=== PATIENT | female | born 1995 | race Hispanic/Latino ===

== ENCOUNTER 2022-03-13 10:42 | Day surgery (SDC) | payer OTHER ==
[~2022-03-13 10:42] MED LIST: ceFAZolin/Water 2 GM/20 ML 2 GM/20 ML SYRINGE IV NR; metroNIDAZOLE/NS 500 MG/100 ML 500 MG/100 ML BAG IV NR
[2022-03-13] MEDS ORDERED: LACTATED RINGERS 1,000 ML ONE ×2 (10:57→13:37)
[2022-03-13] MEDS ORDERED: ONDANSETRON 4 MG/2 ML INJ IV PRN (11:51)
[2022-03-13] MEDS ORDERED: HYDROmorphone 0.5 MG/0.5 ML INJ IV PRN ×2 (11:51)
[2022-03-13] MEDS ORDERED: ACETAMINOPHEN 325 MG TAB PO ONE (11:51)
--- NOTE | 2022-03-13 11:53 | Anesthesia Day of Surgery ---
Anesthesia Day of Surgery - Day of Surgery Patient Examined: Yes Patient H&P Reviewed: Yes Patient is NPO: Yes
--- NOTE | 2022-03-13 11:55 | Anesthesia Consultation ---
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
[2022-03-13] MEDS ORDERED: LACTATED RINGERS 1,000 ML IV SCH (12:00)
[2022-03-13] MEDS ORDERED: CELECOXIB 200 MG CAP PO SCH (12:00)
[2022-03-13] MEDS ORDERED: MIDAZOLAM 2 MG/2 ML INJ IV SCH (12:00)
[2022-03-13] MEDS ORDERED: HYDROmorphone 1 MG/1 ML INJ ONE (12:14)
[2022-03-13] MEDS ORDERED: propofoL 200 MG/20 ML VIAL IV ONE (12:15)
[2022-03-13] MEDS ORDERED: LIDOCAINE MPF (2%) 20 MG/1 ML VIAL 5 ML ONE (12:16)
[2022-03-13] MEDS ORDERED: dexAMETHasone 20 MG/5 ML VIAL ONE (12:41)
[2022-03-13] MEDS ORDERED: LIDOCAINE 2%/EPINEPHRINE 1:100,000 VIAL (20 ML) INFILTRATI ONE ×2 (12:50→13:25)
[2022-03-13] MEDS ORDERED: BUPIVACAINE/PF (0.5%) 5 MG/1 ML 30 ML VIAL INFILTRATI ONE ×2 (12:50→13:25)
[2022-03-13] MEDS ORDERED: KETOROLAC 30 MG/1 ML INJ ONE (13:29)
[2022-03-13] MEDS ORDERED: ONDANSETRON 4 MG/2 ML INJ ONE (13:29)
--- NOTE | 2022-03-13 14:16 | Short Stay Summary ---
Short Stay Documentation Date of service: 03/13/22 - History Principal diagnosis: Internal hemorrhoids with Prolapse and anterior fissure H&P: obtained from office - Allergies and Medications Current Medications: Allergies tramadol Allergy (Verified 02/25/22 15:02) Dizziness NAUSEA AND VOMITING TYLENOL-CODEINE #4 Allergy (Uncoded 02/25/22 15:02) Nausea VOMITING, DIZZINESS Home Medications Medication Instructions Recorded Confirmed Last Taken Type Aspirin/Acetaminophen/Caffeine 1 each PO PRN PRN 02/25/22 02/25/22 Unknown History [Pain Relievr [id number] Cplt] Bacillus Coagulan/Calcium Carb 1 each PO DAILY 02/25/22 02/25/22 Unknown History [Digest Adv Probio 2 B Cell Cap] Collagen/Biotin/Ascorbic Acid 1 each PO DAILY 02/25/22 02/25/22 Unknown History [Collagen 1500 Plus C Capsule] Ergocalciferol(Vitamin D2)(Nf) 400 unit PO DAILY 02/25/22 02/25/22 Unknown History [Vitamin D (Nf)] Green Tea Deridder Extract [Green Tea 315 mg PO DAILY 02/25/22 02/25/22 Unknown History Extract] Norethindrone-E.estradiol-Iron [Lo 1 each PO DAILY 02/25/22 02/25/22 Unknown History Loestrin Fe 1-10 Tablet] Omeprazole 40 mg PO DAILY 02/25/22 02/25/22 Unknown History Ondansetron (Nf) [Zofran TAB] 8 mg PO Q6HR PRN 02/25/22 02/25/22 Unknown History Psyllium Seed (with Sugar) 1 each PO DAILY 02/25/22 02/25/22 Unknown History [Metamucil] Vitamin A 3,000 mcg PO DAILY 02/25/22 02/25/22 Unknown History Active Medications Celecoxib (Celecoxib 200 Mg Cap) 400 mg PO PREOP CHUY Last Admin: 03/13/22 12:10 Dose: 400 mg Hydromorphone HCl (Hydromorphone 0.5 Mg/0.5 Ml Inj) 0.25 mg IV Q10MIN PRN PRN Reason: Pain, Moderate (4-6) Stop: 03/14/22 11:50 Hydromorphone HCl (Hydromorphone 0.5 Mg/0.5 Ml Inj) 0.5 mg IV Q10MIN PRN PRN Reason: Pain , Severe (7-10) Stop: 03/14/22 11:50 Cefazolin Sodium (Ancef/Sterile Water 2 Gm/20 Ml) 2 gm in 20 mls @ 80 mls/hr IV PREOP NR; Protocol Stop: 03/13/22 23:59 Lactated Ringer's (Lactated Ringers) 1,000 mls @ 125 mls/hr IV DIRECT CHUY Last Admin: 03/13/22 12:05 Dose: 125 mls/hr Midazolam HCl (Midazolam 2 Mg/2 Ml Inj) 2 mg IV PREOP CHUY Stop: 03/13/22 23:59 Last Admin: 03/13/22 12:12 Dose: 2 mg Ondansetron HCl (Ondansetron 4 Mg/2 Ml Inj) 4 mg IV ONCE PRN PRN Reason: Nausea And Vomiting - Brief post op/procedure progress note Date of procedure: 03/13/22 Pre-op diagnosis: Internal hemorrhoids with prolapse and anterior fissure Post-op diagnosis: other (Internal hemorrhoids with prolapse and anterior fissure with anterior sentinel piles) Procedure: Examination under anesthesia, transanal dearterialization of hemorrhoids with hemorrhoidal pexy, excisional biopsy of anterior piles Anesthesia: other (LMA general anesthesia an intersphincteric block) Findings: Prolapsing internal hemorrhoids isolated to the posterior quadrant. 2 sentinel piles are noted anteriorly. No active fissure is noted. The 2 sentinel piles are excised for pathologic exam. Surgeon: ROLDAN COOLEY Estimated blood loss: minimal Pathology: list (Anterior sentinel pile is) Specimen disposition: to lab Condition: stable - Disposition Condition at discharge: Good Disposition: 01 HOME / SELF CARE / HOMELESS Short Stay Discharge Plan Diet: other (High-fiber diet) Wound: other (Sitz bath's 3 times daily and as needed BM) Special Instructions: other (Colace 1 tablet p.o. 3 times daily for 10 days mineral oil 1 tablespoon p.o. 3 times daily for 10 days) Follow up with: DR CHAD [Other] - 7 Days ROLDAN COOLEY MD [Staff Physician] - 7 Days Prescriptions: Sulfamethoxazole/Trimethoprim [Bactrim DS TAB] 1 each PO BID #14 Fluconazole (Nf) [Diflucan TAB] 150 mg PO ONCE #7 tablet Oxycodone HCl/Acetaminophen [Percocet 7.5/325 mg] 1 each PO Q6HR PRN 7 Days #14 tab PRN Reason: Pain
--- NOTE | 2022-03-13 14:22 | Post Anesthesia Evaluation ---
- Post Anesthesia Evaluation Patient Participated: Yes Airway Patent: Yes Stable Respiratory Function: Yes Nausea/Vomiting: No Temp > 96.8F: Yes Pain Manageable: Yes Adequeate Hydration: Yes Anesthesia Complications: No Block Receding Appropriately: Not Applicable Patient on Ventilator: No
[2022-03-13 19:09] VITALS: BP 116/72
--- NOTE | 2022-03-25 07:10 | Operative Report ---
Operative Report Operative Report: Date of procedure: 03/13/2022 Preoperative diagnosis: Internal and external hemorrhoids with prolapse and poss ible anterior fissure Postop diagnosis: Same with sentinel pile but no active fissure anteriorly Procedure: Transanal dearterialization and hemorrhoidal pexy with examination under anesthesia and excision of sentinel pile Surgeon: Dr. Ramirez Fruit Sorter: None Estimated blood loss: Minimal Specimen: [place] pile Anesthesia: General endotracheal anesthesia Position: Lithotomy Findings: Patient is taken to the OR where timeouts and consents were needed and noted to be on the chart. The patient is in a prone position with the buttocks taped apart. The anus and perianal area were prepped with pHisoHex and draped in a sterile fashion. Rectal exam is performed. Changes consistent with a healed anal fissure anteriorly are noted. 2 skin tags consistent with sentinel piles are noted anteriorly. Both are excised sharply. Both are submitted for pathology. The Doppler anoscope was then used to identify hemorrhoidal arteries at 1, 3, 5, 7, 9, and 11:00 positions. 2-0 Vicryl was used to do the dearterialization in each of these positions. Hemorrhoidal pexy was performed at each of these positions as well. An intersphincteric nerve block was then performed with half percent Marcaine and 1% lidocaine with epi. Gelfoam soaked in the anesthetic solution is sent placed at the anal verge. The. Procedure was then ended.
== END 2022-03-13 15:00 | disposition home or self-care (01) ==
LOC: OR 10:42
PROVIDERS: ATTEND Surgery
DX: K64.8 Other hemorrhoids (principal); K60.2 Anal fissure, unspecified; G43.909 Migraine, unspecified, not intractable, without status migrainosus; F32.9 Major depressive disorder, single episode, unspecified; F41.9 Anxiety disorder, unspecified; Z88.8 Allergy status to other drugs, medicaments and biological substances; Z88.5 Allergy status to narcotic agent; Z79.82 Long term (current) use of aspirin; Z87.442 Personal history of urinary calculi; Z87.440 Personal history of urinary (tract) infections; Z98.890 Other specified postprocedural states
CPT/HCPCS: 46948; 81025; 88304; J0690; J1100; J1170; J1885; J2250; J2405; J2704; J3490; J7120